=== PATIENT | male | born 1965 | race Two or more races ===

== ENCOUNTER 2019-11-03 10:08 | Emergency (ER) | payer BC, MEDICAID ==
[~2019-11-03] VITALS: Ht 177.8 cm; Wt 93.0 kg
[~2019-11-03 10:08] MED LIST: CARV25TA2 PO; HYDR-3976 PO; LORA0.5T PO; PILO5TAB PO; PROC10TA13 PO; SIMV-46 PO
--- NOTE | 2019-11-03 10:35 | NUR ---
Dr Mayes at the bedside for MSE.
[2019-11-03] MEDS ORDERED: KETOROLAC TROMETHAMINE 30 MG INJ ONE (11:04)
--- NOTE | 2019-11-03 11:08 | NUR ---
Patient discharged to home in stable conditon. Written and verbal after care instructions given. Patient verbalizes understanding of instructions.
[2019-11-03 11:10] VITALS: BP 114/85
[2019-11-03] MEDS ORDERED: KETOROLAC TROMETHAMINE 30 MG INJ IM ONE (11:15)
== END 2019-11-03 11:11 | disposition home or self-care (01) ==
LOC: ER 10:08
DX: J40 Bronchitis, not specified as acute or chronic (principal); I10 Essential (primary) hypertension; Z79.899 Other long term (current) drug therapy
CPT/HCPCS: 71045; 96372; 99283; J1885; A4663

== ENCOUNTER 2020-12-01 17:23 | Emergency (ER) | payer BC, MEDICAID ==
[~2020-12-01] VITALS: Ht 177.8 cm; Wt 88.5 kg
[2020-12-01] MEDS ORDERED: ACETAMINOPHEN 325 MG TABLET PO ONE (17:45)
--- NOTE | 2020-12-01 18:24 | NUR ---
Patient discharged to home in stable condition with brisk steady gait. Written and verbal after care instructions given to patient. Patient verbalizes understanding & compliance of instructions. Stressed follow up with his primary doctor or return to ER for worsening s/s.
== END 2020-12-01 18:24 | disposition home or self-care (01) ==
LOC: ER 17:25
DX: S16.1XXA Strain of muscle, fascia and tendon at neck level, initial encounter (principal); M54.5 Low back pain; S20.212A Contusion of left front wall of thorax, initial encounter; V43.62XA Car passenger injured in collision with other type car in traffic accident, initial encounter; Y92.414 Local residential or business street as the place of occurrence of the external cause; Z85.828 Personal history of other malignant neoplasm of skin; I11.9 Hypertensive heart disease without heart failure; Z79.899 Other long term (current) drug therapy
CPT/HCPCS: 71101; 72100; A4663; A9150

== ENCOUNTER 2020-12-07 02:25 | Emergency (ER) | payer BC ==
[~2020-12-07] VITALS: Ht 177.8 cm; Wt 88.5 kg
--- NOTE | 2020-12-07 02:57 | NUR ---
Dr. Justice at bedside for MSE.
[2020-12-07] MEDS ORDERED: IBUPROFEN 800 MG TABLET PO ONE (03:00)
[2020-12-07] MEDS ORDERED: IBUPROFEN 800 MG TABLET ONE (03:08)
--- NOTE | 2020-12-07 03:08 | NUR ---
Patient out of ER for CT.
--- NOTE | 2020-12-07 03:17 | NUR ---
Pt back to ER from CT.
--- NOTE | 2020-12-07 03:37 | NUR ---
Patient discharged to home in stable condition. Written and verbal after care instructions given. Patient verbalizes understanding of instructions. Stressed follow up or return to ER for worsening s/s. Patient out of ER with steady gait, no acute signs of distress, VSS, all belongings taken, provided with a copy of CT results.
[2020-12-07 03:38] VITALS: BP 147/96
== END 2020-12-07 03:38 | disposition home or self-care (01) ==
LOC: ER 02:30
DX: S13.9XXA Sprain of joints and ligaments of unspecified parts of neck, initial encounter (principal); W18.30XA Fall on same level, unspecified, initial encounter; Y92.89 Other specified places as the place of occurrence of the external cause; Z76.5 Malingerer [conscious simulation]; Z92.21 Personal history of antineoplastic chemotherapy; F11.20 Opioid dependence, uncomplicated; F13.20 Sedative, hypnotic or anxiolytic dependence, uncomplicated; M50.01 Cervical disc disorder with myelopathy, high cervical region; M48.02 Spinal stenosis, cervical region; Z85.22 Personal history of malignant neoplasm of nasal cavities, middle ear, and accessory sinuses; I11.9 Hypertensive heart disease without heart failure
CPT/HCPCS: 72125; A4663

== ENCOUNTER 2022-01-15 21:59 | Inpatient (IN) | payer BC ==
[~2022-01-15] VITALS: Ht 177.8 cm; Wt 88.5 kg
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
[2022-01-15 23:13] LABS: HEMATOCRIT 43.4 % (36.7-47.1); MEAN CORPUSCULAR HEMOGLOBIN 28.9 uug (23.8-33.4); MEAN CORPUSCULAR VOLUME 84.6 fL (73.0-96.2); PLATELET COUNT (AUTO) 294 K/uL (152-348)
--- NOTE | 2022-01-15 23:13 | NUR ---
Dr. Graf at bedside for MSE.
[2022-01-15 23:16] LABS: CREATININE 1.5 mg/dL (0.6-1.3); POTASSIUM 3.9 mmol/L (3.5-5.1)
[2022-01-15 23:21] LABS: BILIRUBIN,TOTAL 0.8 mg/dL (0.2-1.0); TOTAL PROTEIN, SERUM 7.2 g/dL (6.4-8.2)
[2022-01-15] MEDS ORDERED: IV NS 1000 ML 1,000 ML IV ONE (23:30)
[2022-01-15] MEDS ORDERED: ACETAMINOPHEN ES 500 MG TABLET PO ONE (23:30)
[2022-01-15] MEDS ORDERED: ACETAMINOPHEN ES 500 MG TABLET ONE (23:49)
[2022-01-15] MEDS ORDERED: IV NORMAL SALINE 250 ML IV ONE (23:54)
[2022-01-15] MEDS ORDERED: SWABABLE VALVE TRANSFER SET EA MC ONE (23:54)
[2022-01-15] MEDS ORDERED: IOHEXOL 300MG/ML 100 ML INFUS..BTL ONE (23:54)
--- NOTE | 2022-01-16 00:20 | NUR ---
pt taken to cat scan.
[2022-01-16] MEDS ORDERED: PIPERACILLIN SODIUM/TAZOBACTAM 3.375 G in IV DEXTROSE 5% 50 ML IV ONE (03:15)
[2022-01-16] MEDS ORDERED: MORPHINE SULFATE 4 MG/1 ML DISP.SYRIN IV ONE (03:15)
--- NOTE | 2022-01-16 03:15 | NUR ---
received a call from Tony pillowcase maker for [facility]. gave authorization for pt to be admitted here. Auth number [id number].
[2022-01-16] MEDS ORDERED: METO-358 PO (03:20)
--- NOTE | 2022-01-16 03:30 | NUR ---
Dr Graf spoke with Dr Morocho for surgery consult.
--- NOTE | 2022-01-16 03:35 | NUR ---
Dr Graf spoke to Dr Palma who is government operations consultant for [employer] and accept patient to in patient.
[2022-01-16] MEDS ORDERED: ONDANSETRON 4 MG/2 ML VIAL IV PRN (03:45)
[2022-01-16] MEDS ORDERED: ACETAMINOPHEN 325 MG TABLET PO PRN (03:45)
[2022-01-16] MEDS ORDERED: MORPHINE SULFATE 2 MG/1 ML DISP.SYRIN IV PRN (03:45)
[2022-01-16] MEDS ORDERED: hydrALAZINE HCL 20 MG/1 ML VIAL IV PRN (03:45)
[2022-01-16] MEDS ORDERED: MORPHINE SULFATE 4 MG/1 ML DISP.SYRIN ONE (03:52)
[2022-01-16] MEDS ORDERED: PIPERACILLIN/TAZOBACTAM/D5W 50 ML IV ONE (03:52)
--- NOTE | 2022-01-16 03:59 | NUR ---
spoke with Ben pharmacist in charge owner nurse on third floor he states pt will go to 303.
--- NOTE | 2022-01-16 04:23 | NUR ---
report given to Lizbeth ERVIN.
--- NOTE | 2022-01-16 05:22 | NUR ---
pt transferred to room 303 via [facility] with all belongings Simi Nieves at bedside to receive the pt.
[2022-01-16] MEDS ORDERED: HYDROMORPHONE 1 MG/1 ML DISP.SYRIN IV ONE (05:30)
--- NOTE | 2022-01-16 05:30 | NUR ---
RECEIVED PATIENT VIA GURNEY FROM ER. PATIENT IS A/O X4. C/O PAIN IN ABDOMEN, LEFT ARM AND CHEST. PATIENT ASKING FOR DILAUDID FOR PAIN, CALLED OUT TO MD AND RECEIVED ONE TIME ORDER FOR DILAUDID 1MG IV X1. VS WNL. HEPLOCK INTACT AND PATENT, NOTED TO LEFT AC #20 GAUGE. ORIENTED PATIENT TO ROOM AND CALL LIGHT. NO RESP. DISTRESS NOTED. CALL LIGHT IN REACH. ALL NEEDS ATTENDED. WILL CONTINUE TO MONITOR AND ASSESS.
[2022-01-16 05:34] VITALS: BP 132/84
--- NOTE | 2022-01-16 06:37 | NUR ---
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 Addendum: 01/16/22 at 0644 by KATRIN BEAUCHAMP LVN Amended: Links added.
[2022-01-16] MEDS: ENOXAPARIN SODIUM 40 MG/0.4 ML DISP.SYRIN SQ SCH (08:39)
[2022-01-16] MEDS: METOPROLOL SUCCINATE XL 50 MG TAB.SR.24H PO SCH (08:48)
[2022-01-16 11:41] VITALS: BP 148/98
--- NOTE | 2022-01-16 13:00 | NUR ---
received call from dr. cabral patient to undergo laparoscopic appendectomy possible exploratory laparotomy on 01/17 at 0830 consent has been signed, patient to remain npo until tomorrow noted and carried out.
[2022-01-16] MEDS ORDERED: SUCCINYLCHOLINE CHLORIDE 200 MG/10 ML VIAL ONE (13:35)
[2022-01-16] MEDS ORDERED: ONDANSETRON 4 MG/2 ML VIAL ONE (13:35)
[2022-01-16] MEDS ORDERED: PROPOFOL 200 MG/20 ML BOTTLE ONE (13:35)
[2022-01-16] MEDS ORDERED: GLYCOPYRROLATE 0.2 MG/ML VIAL ONE ×3 (13:35)
[2022-01-16] MEDS ORDERED: CEFAZOLIN 1 G VIAL ONE ×2 (13:35)
[2022-01-16] MEDS ORDERED: NEOSTIGMINE METHYLSULFATE 10 MG/10 ML VIAL ONE (13:35)
[2022-01-16] MEDS ORDERED: DEXAMETHASONE SOD PHOSPHATE 4 MG INJ ONE (13:35)
[2022-01-16] MEDS ORDERED: LIDOCAINE-MPF 2% 5 ML VIAL ONE (13:35)
[2022-01-16] MEDS: HYDROMORPHONE 1 MG/1 ML DISP.SYRIN IV PRN ×2 (14:48→20:08)
[2022-01-16 16:00] VITALS: BP 132/72
--- NOTE | 2022-01-16 19:30 | NUR ---
Received patient lying in bed. AAOx4. In no apparent distress. Denies any SOB. COmplain of some pain on right side of abdomen. Will provide Dilaudid 1mg via IV PRN as ordered. IV site on left AC intact and patent. Needs assessed and attended to. Safety measure initiated and call light within reached.
[2022-01-16 20:00] VITALS: BP 131/86
[2022-01-16] MEDS: IV NS 1000 ML 1,000 ML IV PRN (20:08)
[2022-01-17] MEDS: HYDROMORPHONE 1 MG/1 ML DISP.SYRIN IV PRN ×3 (01:40→21:56)
[2022-01-17 04:00] VITALS: BP 157/97
--- NOTE | 2022-01-17 05:45 | NUR ---
AAOx4. In no acute distress. Denies any SOB. Dilaudid 1mg via IV every 3 hours PRN given for complain of pain on right side of abdomen and effective. IV site on left AC intact and patent. IVF infusing. NPO status. Needs attended to and met. Safety measure maintained and call light within reached.
[2022-01-17] MEDS: IV NS 1000 ML 1,000 ML IV PRN (05:59)
--- NOTE | 2022-01-17 06:10 | NUR ---
FAX SENT INFORMATION:FACESHEET,PROGRESS NOTES, CONSULTATION,24HRS,PSF,UR 01/16 FAX NUMBER & INSURANCE:[facility] [facility] [place] [phone] FAX SENT BY [facility]
[2022-01-17 06:27] LABS: HEMATOCRIT 42.5 % (36.7-47.1); MEAN CORPUSCULAR HEMOGLOBIN 29.4 uug (23.8-33.4); MEAN CORPUSCULAR VOLUME 84.8 fL (73.0-96.2); PLATELET COUNT (AUTO) 279 K/uL (152-348)
--- NOTE | 2022-01-17 06:30 | NUR ---
Report given to DIRECTOR OF EXTENSION WORKARCADIO Epps.
[2022-01-17 06:40] LABS: BILIRUBIN,TOTAL 0.9 mg/dL (0.2-1.0); CREATININE 1.2 mg/dL (0.6-1.3); MAGNESIUM 2.1 mg/dL (1.8-2.4); PHOSPHOROUS 2.6 mg/dL (2.5-4.9); TOTAL PROTEIN, SERUM 6.8 g/dL (6.4-8.2)
[2022-01-17] MEDS ORDERED: BUPIVACAINE/EPI PF 0.25% 30 ML VIAL ONE (07:01)
[2022-01-17] MEDS ORDERED: LIDOCAINE HCL 1% 20 ML VIAL ONE (07:01)
[2022-01-17] MEDS ORDERED: BACITRACIN ZINC OINT 15 GM TUBE ONE (07:01)
[2022-01-17] MEDS: ENOXAPARIN SODIUM 40 MG/0.4 ML DISP.SYRIN SQ SCH (08:15)
[2022-01-17] MEDS: METOPROLOL SUCCINATE XL 50 MG TAB.SR.24H PO SCH (08:15)
--- NOTE | 2022-01-17 08:16 | NUR ---
PATIENT IS IN BED AWAKE ALERT AND ORIENTED HAS BEEN NOTHING BY MOUTH PER PATIENT AND PER REPORT BUT HIS BETA FAWN METOPROLOL GIVEN ORDERED WITH A SIP OF WATER HIS BLOOD PRESSURE IS 148/96 HEART RATE IS 63 LOVENOX HELD PATIENT WILL BE HAVING SURGERY THIS AM ON ROOM AIR WITH NO SOB IVF IS IN PROGRESS WITH NO S/S OF INFILTERATION ON SITE MADE COMFORTABLE PRE OP TEACHING IS IN PROGRESS WILL CONTINUE TO OBSERVE.
--- NOTE | 2022-01-17 09:35 | NUR ---
URINE SPECIMEN OBTAINED AND SENT TO THE LAB ORDERED.
[2022-01-17 09:48] LABS: *BILIRUBIN,URIN NEGATIVE (NEGATIVE); *BLOOD, URINE NEGATIVE (NEGATIVE); *CLARITY,URINE CLEAR (CLEAR); *COLOR,URINE YELLOW (YELLOW); *KETONES,URINE NEGATIVE (NEGATIVE); LEUKOCYTE ESTERASE ,URINE NEGATIVE (NEGATIVE); NITRITE, URINE NEGATIVE (NEGATIVE); PH,URINE 5.5 (5.0-8.0); UGLUCOSE NEGATIVE (NEGATIVE)
[2022-01-17 10:09] LABS: *URINE TOTAL PROTEIN RANDOM 29.3 mg/dL (<150/24HR)
[2022-01-17] MEDS ORDERED: FENTANYL CITRATE 250 MCG/5 ML AMPUL ONE (10:53)
[2022-01-17] MEDS ORDERED: MIDAZOLAM HCL 2 MG/2 ML VIAL ONE (10:53)
[2022-01-17] MEDS ORDERED: ROCURONIUM BROMIDE 50 MG/5 ML VIAL ONE (10:54)
--- NOTE | 2022-01-17 11:00 | NUR ---
PATIENT PICKED UP BY BED TO OR FOR SCHEDULED SURGERY TODAY IN SATISFACTORY CONDITION.
[2022-01-17] MEDS ORDERED: SUCCINYLCHOLINE CHLORIDE 200 MG/10 ML VIAL ONE (11:04)
[2022-01-17] MEDS ORDERED: GLYCOPYRROLATE 0.2 MG/ML VIAL ONE (11:27)
[2022-01-17] MEDS ORDERED: CLOTRIMAZOLE 1% CREAM 30 GM TUBE TP PRN (13:00)
[2022-01-17] MEDS ORDERED: FENTANYL CITRATE 100 MCG/2 ML AMPUL ONE (13:14)
[2022-01-17] MEDS ORDERED: KETOROLAC TROMETHAMINE 30 MG INJ ONE (13:14)
[2022-01-17 13:56] VITALS: BP 128/82
--- NOTE | 2022-01-17 14:00 | NUR ---
PATIENT RETURNED BY BED TO HIS ROOM AWAKE ALERT AND ORIENTED DENIES PAIN OR DISCOMFORTS AT THIS TIME HE HAS O2 AT 2L/M BY NASAL CANULA WITH NO SOB AT THIS TIME ABDOMEN WITH 3 STAB SITES 2 WITH CROSSED BAND AIDE AND THE THIRD WITH 2X2 GAUZE WITH TRANSPARENT DRESSING WHICH IS CLEAN DRY AND INTACT AT THIS TIME PATIENT GIVEN JELLO AND WATER ABLE TO TOLERATE WITH NO NAUSEA OR VOMITING AT THIS TIME VITALS CHECKED AND RECORDED MADE COMFORTABLE WILL CONTINUE TO OBSERVE.
[2022-01-17] MEDS: IV LACTATED RINGERS SOLUTION 1,000 ML IV PRN ×2 (14:03→21:13)
[2022-01-17] MEDS: GABAPENTIN 300 MG CAPSULE PO SCH ×2 (14:05→21:13)
[2022-01-17] MEDS: IBUPROFEN 800 MG TABLET PO SCH ×2 (14:05→21:14)
[2022-01-17] MEDS: ACETAMINOPHEN 325 MG TABLET PO SCH ×2 (14:05→21:14)
[2022-01-17 14:26] VITALS: BP 147/89
--- NOTE | 2022-01-17 14:47 | NUR ---
POST OP TEACHING IN PROGRESS AT THIS TIME INCENTIVE SPIROMETER PROVIDED AND EDUCATED REFUSING HIS DVT PUMPS AND O2 ORDERED BENEFITS EXPLAINED TO PATIENT WILL CONTINUE TO OBSERVE.
[2022-01-17 15:26] VITALS: BP 155/85
--- NOTE | 2022-01-17 16:20 | NUR ---
C/O ABDOMINAL PAIN MEDICATED WITH MORPHINE ORDERED MADE COMFORTABLE WILL OBSERVE.
--- NOTE | 2022-01-17 16:45 | NUR ---
DR RIDLEY HERE SEEN PATIENT WITH ORDER TO ADVANCE DIET TO FULL LIQUIDS FOR DINNER AND NOTED.
--- NOTE | 2022-01-17 18:00 | NUR ---
PATIENT TOLERATED FULL LIQUIDS DIET ORDERED WITH NO N/V NO ABDOMINAL PAIN RESTING ABLE TO AMBULATE USING HIS INCENTIVE SPIROMETER AND VOIDING WELL NOT IN DISTRESS AT THIS TIME.
--- NOTE | 2022-01-17 19:30 | NUR ---
RECEIVED PT AWAKE, ALERT AND ORIENTEDX4. PT IN NI ACUTE DISTRESS. IV INTACT. PT REFUSED TO HAVE NASAL CANNULA. OXYGEN SATURATION OF PT IS 96% ON ROOM AIR. PT REFUSED HIS SCD. INSTRUCT PT TO USE HIS INCENTIVE SPIROMETER. SAFETY AND COMFORT PROVIDED. WILL CONTINUE TO MONITOR.
[2022-01-17 20:37] VITALS: BP 117/86
--- NOTE | 2022-01-17 23:00 | NUR ---
AT 2156 H DILAUDID 1MG PRN GIVEN TO PT FOR 8/10 PAIN SCALE. PT TOLERATED IT WELL. AFTER AN HOUR PAIN MEDICATION EFFECTIVE.PT STATED PAIN SUBSIDED. WILL CONTINUE TO MONITOR.
[2022-01-18] MEDS: HYDROMORPHONE 1 MG/1 ML DISP.SYRIN IV PRN ×3 (02:23→09:46)
--- NOTE | 2022-01-18 03:42 | NUR ---
at 0223h Dilaudid p1mg prn given to pt for 8/10 abdominal pain. Pt tolerated it well. After an hour pt stated its effective. Pt in no acute distress. Will continue to monitor.
[2022-01-18 04:15] VITALS: BP 131/83
[2022-01-18] MEDS: IBUPROFEN 800 MG TABLET PO SCH ×2 (05:49→13:21)
[2022-01-18] MEDS: ACETAMINOPHEN 325 MG TABLET PO SCH ×2 (05:49→13:21)
[2022-01-18] MEDS: GABAPENTIN 300 MG CAPSULE PO SCH ×2 (05:49→13:21)
[2022-01-18] MEDS: IV LACTATED RINGERS SOLUTION 1,000 ML IV PRN (05:57)
[2022-01-18 06:38] LABS: HEMATOCRIT 40.5 % (36.7-47.1); MEAN CORPUSCULAR HEMOGLOBIN 29.2 uug (23.8-33.4); MEAN CORPUSCULAR VOLUME 84.7 fL (73.0-96.2); PLATELET COUNT (AUTO) 294 K/uL (152-348)
--- NOTE | 2022-01-18 06:42 | NUR ---
at 0638Dilaudid 1mg prn given to pt for 10/10 pain scale. Pt tolerated it well. Will endorse to incoming nurse for continuity of care.
--- NOTE | 2022-01-18 06:43 | NUR ---
Pt slept intermittently. Pt in no acute distress. Pt on room air. Iv intact. Prescribed medication given and pt tolerated it well. PT dressing site intact , clean and dry. Safety and comfort provided. All needs are met. Vital signs within normal limit. Will endorse to incoming nurse for continuity of care.
[2022-01-18 07:03] LABS: BILIRUBIN,TOTAL 0.5 mg/dL (0.2-1.0); CREATININE 1.3 mg/dL (0.6-1.3); PHOSPHOROUS 2.7 mg/dL (2.5-4.9); POTASSIUM 4.4 mmol/L (3.5-5.1); TOTAL PROTEIN, SERUM 6.5 g/dL (6.4-8.2)
--- NOTE | 2022-01-18 07:30 | NUR ---
Received patient report from PM nurse. Arrived to patient's room sleeping. Patient showing no signs of distress or discomfort. Patient's pain is managed. Bed left in lowest position with call light within reach. IV site intact and patent running Lactated Ringer at 125 cc/hr. Will continue to monitor patient throughout shift.
[2022-01-18] MEDS: ENOXAPARIN SODIUM 40 MG/0.4 ML DISP.SYRIN SQ SCH (08:29)
[2022-01-18] MEDS: METOPROLOL SUCCINATE XL 50 MG TAB.SR.24H PO SCH (08:33)
[2022-01-18] MEDS: CEphaleXIN 500 MG CAPSULE PO SCH ×2 (09:41→13:21)
--- NOTE | 2022-01-18 09:55 | NUR ---
Dilaudid 1mg given to patient for breakthrough pain rated at 10/10.
[2022-01-18 11:44] VITALS: BP 154/92
[2022-01-18] MEDS ORDERED: HYDR-4209 PO (11:51)
[2022-01-18] MEDS ORDERED: CEPH500C2 PO (11:51)
[2022-01-18] MEDS ORDERED: ATOR10TA PO (11:51)
--- NOTE | 2022-01-18 12:42 | NUR ---
Discharge in process. Spoke to patient about getting a ride due to patient driving here by himself. Patient stated that he can drive himself despite advising for patient to not drive.
--- NOTE | 2022-01-18 13:33 | NUR ---
Pharmacy issues regarding patient's medication. Pharmacy changed according to patient's preference. Dr. Boyd notified. Admitting notified. Pharmacy preference changed.
[2022-01-18 16:34] VITALS: BP 143/89
[2022-01-18] MEDS ORDERED: HYDR-3980 PO ×2 (17:08→17:22)
--- NOTE | 2022-01-18 18:32 | NUR ---
Patient discharged from unit at 1825. Discharge education provided. IV site removed. ID badge removed.
== END 2022-01-18 18:25 | disposition home or self-care (01) | DRG 234 ==
LOC: ER 22:03 → MEDSURG3 01-16 04:50
PROVIDERS: ADMIT Internal Medicine
PROC: 0DTJ4ZZ Resection of Appendix, Percutaneous Endoscopic Approach (ICD-10-PCS; principal; 2022-01-17)
PROC: 0HTRXZZ Resection of Toe Nail, External Approach (ICD-10-PCS; principal; 2022-01-17)
DX: K35.80 Unspecified acute appendicitis (principal); N17.0 Acute kidney failure with tubular necrosis; I11.9 Hypertensive heart disease without heart failure; B35.1 Tinea unguium; E66.8 Other obesity; D18.03 Hemangioma of intra-abdominal structures; E78.5 Hyperlipidemia, unspecified; K57.90 Diverticulosis of intestine, part unspecified, without perforation or abscess without bleeding; K76.0 Fatty (change of) liver, not elsewhere classified; Z85.828 Personal history of other malignant neoplasm of skin; M51.36 Other intervertebral disc degeneration, lumbar region; M51.34 Other intervertebral disc degeneration, thoracic region; Z68.28 Body mass index [BMI] 28.0-28.9, adult; N43.3 Hydrocele, unspecified; M95.0 Acquired deformity of nose; R51.9 Headache, unspecified; Z20.822 Contact with and (suspected) exposure to COVID-19; Z79.899 Other long term (current) drug therapy
CPT/HCPCS: 36415; 70450; 71260; 72131; 76770; 83690; 83735; 84100; 84156; 84300; 84484; 85025; 93005; A4663; A9150; G0378; J0330; J0690; J1100; J1170; J1650; J1885; J2250; J2270; J2405; J2543; J3010; J3490; J7030; J7050; J7120; Q9967

== ENCOUNTER 2022-02-15 | Emergency (ER) | payer BC ==
[~2022-02-15] VITALS: Ht 177.8 cm; Wt 90.7 kg
[~2022-02-15] MED LIST changes: +ATOR10TA PO; -CARV25TA2 PO; +CEPH500C2 PO; -HYDR-3976 PO; -LORA0.5T PO; +METO-358 PO; -PILO5TAB PO; -PROC10TA13 PO; -SIMV-46 PO
--- NOTE | 2022-02-15 00:17 | NUR ---
Patient walked into ER for staple removal from laparoscopic appendectomy here on 01/17/2022. Patient also c/o SWARTZ x1 month.
[2022-02-15] MEDS ORDERED: ASPIRIN 325 MG TABLET PO ONE (01:00)
[2022-02-15] MEDS ORDERED: ASPIRIN 325 MG TABLET ONE (01:03)
--- NOTE | 2022-02-15 01:11 | NUR ---
Patient discharged to home in stable condition. Written and verbal after care instructions given. Patient verbalizes understanding of instructions. Stressed follow up or return to ER for worsening s/s.
[2022-02-15 01:12] VITALS: BP 138/78
== END 2022-02-15 01:16 | disposition home or self-care (01) ==
LOC: ER 00:08
DX: Z48.02 Encounter for removal of sutures (principal); G89.29 Other chronic pain; M54.50 Low back pain, unspecified; I11.9 Hypertensive heart disease without heart failure; Z85.828 Personal history of other malignant neoplasm of skin
CPT/HCPCS: A4663

== ENCOUNTER 2022-08-08 21:55 | Emergency (ER) | payer BC ==
[~2022-08-08] VITALS: Ht 177.8 cm; Wt 88.5 kg
--- NOTE | 2022-08-08 22:18 | NUR ---
AFTER BEING TRIAGED, PATIENT WAS PLACED BACK IN THE WAITING ROOM DUE TO NO BEDS AVAILABLE IN THE ER.
--- NOTE | 2022-08-08 23:19 | NUR ---
Placed in 4a at this time.
--- NOTE | 2022-08-08 23:31 | NUR ---
PATIENT WALKED INTO ER C/O CONSTANT SWARTZ WITH NAUSEA FOR 1 MONTH.
--- NOTE | 2022-08-08 23:43 | NUR ---
Dr. Harrell on bedside for MSE.
[2022-08-09] MEDS ORDERED: ACETAMINOPHEN ES 500 MG TABLET ONE (00:01)
[2022-08-09] MEDS ORDERED: ACETAMINOPHEN ES 500 MG TABLET PO ONE (00:15)
--- NOTE | 2022-08-09 01:03 | NUR ---
Back from CT.
[2022-08-09] MEDS ORDERED: HYDR-3980 PO (01:16)
[2022-08-09 02:14] VITALS: BP 160/98
--- NOTE | 2022-08-09 02:14 | NUR ---
Patient discharged to home in stable condition. Written and verbal after care instructions given. Patient verbalizes understanding of instructions. Stressed follow up or return to ER for worsening s/s. Patient ambulated fr the ER with steady gait. All belongings with patient.
== END 2022-08-09 02:15 | disposition home or self-care (01) ==
LOC: ER 21:56
DX: G89.3 Neoplasm related pain (acute) (chronic) (principal); G44.89 Other headache syndrome; Z85.828 Personal history of other malignant neoplasm of skin
CPT/HCPCS: 70450; A4663; A9150

== ENCOUNTER 2025-03-18 20:51 | Emergency (ER) | payer BC ==
[~2025-03-18] VITALS: Ht 177.8 cm; Wt 88.5 kg
[~2025-03-18 20:51] MED LIST changes: +HYDR-3980 PO
[2025-03-18] MEDS ORDERED: hydrALAZINE HCL 20 MG/1 ML VIAL ONE (21:52)
[2025-03-18] MEDS ORDERED: SULFAMETH/TRIMETH 800/160 MG TABLET ONE (21:52)
[2025-03-18] MEDS ORDERED: VANCOMYCIN IV 200 ML ONE (21:52)
[2025-03-18 22:15] LABS: BASOPHILS # (AUTO) 0.1 K/UL (0.0-0.2); BASOPHILS % (AUTO) 0.6 % (0.0-2.0); EOSINOPHILS # (AUTO) 0.2 K/uL (0.0-0.7); EOSINOPHILS % (AUTO) 1.8 % (0.0-7.0); HEMATOCRIT 46.3 % (36.7-47.1); HEMOGLOBIN 15.7 g/dL (12.5-16.3); LYMPHOCYTES # (AUTO) 1.6 K/uL (0.8-4.8); LYMPHOCYTES % (AUTO) 17.3 % (20.5-51.5); MEAN CORPUSCULAR HEMOGLOBIN 28.3 uug (23.8-33.4); MEAN CORPUSCULAR HGB CONC 34 g/dL (32.5-36.3); MEAN CORPUSCULAR VOLUME 83.6 fL (73.0-96.2); MONOCYTES # (AUTO) 0.5 K/uL (0.1-1.30); MONOCYTES % (AUTO) 5.3 % (0.0-11.0); PLATELET COUNT (AUTO) 307 K/uL (152-348); RED BLOOD CELL COUNT(AUTO) 5.54 MIL/uL (4.06-5.63); RED CELL DISTRIBUTION WIDTH 14.7 % (12.1-16.2); WHITE BLOOD COUNT (AUTO) 9.4 K/uL (3.6-10.2)
[2025-03-18] MEDS: VANCOMYCIN IV 1,000 MG in IV DEXTROSE 5% 250 ML IV ONE (22:15)
[2025-03-18] MEDS: SULFAMETH/TRIMETH 800/160 MG TABLET PO ONE (22:15)
[2025-03-18] MEDS: IV NORMAL SALINE 1000 ML BAG IV ONE (22:15)
[2025-03-18] MEDS: hydrALAZINE HCL 20 MG/1 ML VIAL IV ONE (22:15)
[2025-03-18 22:18] LABS: DIFFERENTIAL COMMENT 1
[2025-03-18 22:22] LABS: CALCIUM 9.1 mg/dL (8.5-10.1); CREATININE 1.4 mg/dL (0.6-1.3); POTASSIUM 4.1 mmol/L (3.5-5.1)
[2025-03-18 22:27] LABS: ALBUMIN 3.7 g/dL (3.4-5.0); BILIRUBIN,DIRECT 0.1 mg/dL (0.0-0.2); BILIRUBIN,TOTAL 0.3 mg/dL (0.2-1.0); TOTAL PROTEIN, SERUM 7.5 g/dL (6.4-8.2)
[2025-03-18] MEDS ORDERED: LABETALOL HCL 100 MG/20 ML VIAL ONE (23:02)
[2025-03-18] MEDS ORDERED: LORAZEPAM 2 MG/1 ML VIAL ONE (23:03)
[2025-03-18] MEDS: LORAZEPAM 2 MG/1 ML VIAL IV ONE (23:08)
[2025-03-18] MEDS: LABETALOL HCL 100 MG/20 ML VIAL IV ONE (23:09)
[2025-03-18] MEDS ORDERED: LORA-259 PO (23:30)
[2025-03-18] MEDS ORDERED: CLON0.1T PO (23:30)
[2025-03-18] MEDS ORDERED: SULF1TAB48 PO (23:30)
[2025-03-18] MEDS ORDERED: HYDROCODONE/APAP 10-325 MG TABLET ONE (23:56)
[2025-03-18] MEDS: HYDROCODONE/APAP 10-325 MG TABLET PO ONE (23:57)
[2025-03-19 00:52] VITALS: BP 143/83; TEMP 98; O2SAT 96
== END 2025-03-19 00:53 | disposition home or self-care (01) ==
LOC: ER 21:12
DX: L03.811 Cellulitis of head [any part, except face] (principal); F41.9 Anxiety disorder, unspecified; I11.9 Hypertensive heart disease without heart failure; Z79.899 Other long term (current) drug therapy
CPT/HCPCS: 99284; 96374; 96375; 80076; 80048; 85025; 87040 ×2; 36415; 93005; 83605; 87070; 87075; 87186; J0360; J3490; J2060; J3370; J7040; A4606; A4663